=== PATIENT | male | born 1940 | race African-American/Black ===

== ENCOUNTER 2019-02-06 07:27 | Emergency (ER) | payer OTHER, MEDICAID ==
[~2019-02-06] VITALS: Ht 162.6 cm; Wt 90.7 kg
[~2019-02-06 07:27] MED LIST: AMLO10TA13 PO; ASPI81CH43 PO; SIMV-8 PO; TAM04C PO
[2019-02-06 07:45] VITALS: BP 137/84
[2019-02-06] MEDS ORDERED: KETOROLAC TROMETH 30 MG/ML 1ML VIAL IM ONE (08:45)
== END 2019-02-06 09:23 | disposition home or self-care (01) ==
LOC: ER 07:30
DX: M25.561 Pain in right knee (principal); M25.571 Pain in right ankle and joints of right foot; E11.9 Type 2 diabetes mellitus without complications; E78.5 Hyperlipidemia, unspecified; I10 Essential (primary) hypertension; Z86.73 Personal history of transient ischemic attack (TIA), and cerebral infarction without residual deficits; Z79.899 Other long term (current) drug therapy
CPT/HCPCS: 73562; 96372; 99283; J1885